=== PATIENT | male | born 1935 | race Hispanic/Latino ===

== ENCOUNTER → 2018-02-13 | Outpatient (CLI) | payer OTHER, MEDICARE ==
[~2018-02-13] MED LIST: ASPI-1197 PO; CLOP75TA32 PO; FURO40TA5 PO; LEVO500T2 PO; LISI10TA7 PO; METF500T6 PO; METO50TA18 PO; NITR.4 SL; SIMV40TA59 PO; SUPER B COMPLEX PO
== END | disposition home or self-care (01) ==
LOC: SHCH 09:42
PROVIDERS: ATTEND Internal Medicine Cardiovascular Disease
DX: I87.2 Venous insufficiency (chronic) (peripheral) (principal)
CPT/HCPCS: 93970

== ENCOUNTER 2018-02-21 11:09 | Emergency (ER) | payer OTHER, MEDICARE ==
[2018-02-21] MEDS ORDERED: ACETAMINOPHEN 325 MG TAB ONE (11:51)
== END 2018-02-21 12:19 | disposition home or self-care (01) ==
LOC: EDH 11:09
DX: M25.532 Pain in left wrist (principal); E11.9 Type 2 diabetes mellitus without complications; E78.5 Hyperlipidemia, unspecified; I10 Essential (primary) hypertension; Z95.0 Presence of cardiac pacemaker; Z87.891 Personal history of nicotine dependence
CPT/HCPCS: 29125; 73110